=== PATIENT | female | born 2005 | race African-American/Black ===

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

== ENCOUNTER 2023-10-26 12:49 | Emergency (ER) | payer OTHER ==
[~2023-10-26] VITALS: Ht 172.7 cm; Wt 60.0 kg
[~2023-10-26 12:49] MED LIST changes: +MICO45CR75 VG; +NAPR-681 MT
[2023-10-26 12:50] VITALS: BP 115/62; PULSE 74; RESP 18; TEMP 98.9; O2SAT 99
[2023-10-26] MEDS: DEXAMETHASONE 4MG/ML 1ML VIAL IV ONE (14:04)
[2023-10-26 14:56] LABS: CLARITY URINE CLOUDY (CLEAR); COLOR URINE YELLOW (YELLOW); GLUCOSE URINE NEGATIVE (NEGATIVE); KETONES URINE 3+ (NEGATIVE); LEUKOCYTE ESTERASE URINE 2+ (NEGATIVE); NITRITE URINE NEGATIVE (NEGATIVE); OCCULT BLOOD URINE NEGATIVE (NEGATIVE); PH URINE 6.5 (4.5-8.0); PROTEIN URINE TRACE (NEGATIVE)
[2023-10-26 15:18] LABS: BACTERIA URINE 2+; SQUAMOUS EPITHELIAL CELL URINE 3+ /lpf (RARE/1+); YEAST URINE NONE SEEN
[2023-10-26] MEDS ORDERED: AMOX-494 MT (15:28)
[2023-10-26] MEDS ORDERED: IBUP-2029 MT (15:28)
[2023-10-26] MEDS ORDERED: IBUP-2030 MT (15:58)
[2023-10-26] MEDS ORDERED: CLIN-116 MT (15:58)
== END 2023-10-26 16:11 | disposition home or self-care (01) ==
LOC: ER 12:49
DX: J02.9 Acute pharyngitis, unspecified (principal); J45.909 Unspecified asthma, uncomplicated; Z79.899 Other long term (current) drug therapy
CPT/HCPCS: 81003; 81025; 87430; 87070; 87077; 96374; 99283; J1100; Z7610